=== PATIENT | male | born 2000 | race Caucasian/White ===

== ENCOUNTER 2024-01-13 09:29 | Emergency (ER) | payer OTHER ==
[~2024-01-13] VITALS: Ht 177.8 cm; Wt 81.6 kg
[2024-01-13 09:32] VITALS: BP 145/88; TEMP 98
[2024-01-13 10:05] VITALS: O2SAT 97
== END 2024-01-13 10:18 | disposition home or self-care (01) ==
LOC: ER 10:16
DX: T17.228A Food in pharynx causing other injury, initial encounter (principal); R11.2 Nausea with vomiting, unspecified; W44.8XXA Other foreign body entering into or through a natural orifice, initial encounter; Y93.89 Activity, other specified; Y92.89 Other specified places as the place of occurrence of the external cause; Y99.8 Other external cause status